=== PATIENT | male | born 1960 | race Caucasian/White ===

== ENCOUNTER 2022-08-06 09:28 | Inpatient (IN) | payer OTHER ==
[~2022-08-06] VITALS: Ht 180.3 cm; Wt 83.5 kg
[2022-08-06 10:34] LABS: BASOPHILS ABSOLUTE AUTO 0.08 K/mm3 (0.00-0.23); BASOPHILS PERCENT AUTO 1 % (0-2); EOSINOPHILS ABSOLUTE AUTO 0.13 K/mm3 (0.00-0.68); EOSINOPHILS PERCENT AUTO 1 % (0-6); Hematocrit 50.7 % (37.0-53.0); Hemoglobin 17.3 g/dL (13.5-17.5); IMMATURE GRAN ABSOLUTE AUTO 0.03 K/mm3 (0.00-0.10); IMMATURE GRAN PERCENT AUTO 0 % (0-1); LYMPHOCYTES ABSOLUTE AUTO 0.99 K/mm3 (0.84-5.20); LYMPHOCYTES PERCENT AUTO 9 % (21-46); MONOCYTES ABSOLUTE AUTO 1.27 K/mm3 (0.16-1.47); MONOCYTES PERCENT AUTO 11 % (4-13); Mean Corpuscular HGB 32.3 pg (26.0-34.0); Mean Corpuscular HGB Conc 34.1 g/dL (31.5-36.5); Mean Corpuscular Volume 95 fL (80-100); Mean Platelet Volume 9.3 fL (9.1-12.4); NEUTROPHILS ABSOLUTE AUTO 9.01 K/mm3 (1.96-9.15); NEUTROPHILS PERCENT AUTO 78 % (41-73); Platelet Count 404 K/mm3 (150-400); RDW Standard Deviation 48.6 fL (35.1-46.3); Red Blood Cell Count 5.36 M/mm3 (4.30-5.90); White Blood Cell Count 11.51 K/mm3 (4.00-11.30)
[2022-08-06] MEDS ORDERED: FURO20 PO (10:37)
[2022-08-06] MEDS ORDERED: IBUP200 PO (10:38)
[2022-08-06] MEDS ORDERED: GUAI200 PO (10:38)
[2022-08-06] MEDS ORDERED: ALBU90OI INH (10:38)
[2022-08-06] MEDS ORDERED: EPIPEN0.3 MG/0.3 IM (10:38)
[2022-08-06 10:53] LABS: Albumin, Blood 3.9 g/dL (3.4-5.0); Albumin/Globulin Ratio 0.9 (0.8-1.8); Bilirubin, Total 0.7 mg/dL (0.1-1.0); Bun/Creatinine Ratio 19.1 (12.0-20.0); Calcium, Blood 10.3 mg/dL (8.5-10.1); Creatinine, Blood 0.89 mg/dL (0.60-1.20); Globulin, Blood 4.4 g/dL (2.2-4.0); Magnesium, Blood 1.9 mg/dL (1.6-2.4); Potassium, Blood 3.1 mmol/L (3.5-5.5); Thyroid Stimulating Hormone 2.23 uIU/mL (0.360-4.800); Total Protein, Blood 8.3 g/dL (6.4-8.2)
--- NOTE | 2022-08-06 16:16 | NUR ---
Telephone report from ED; pt will be arriving to PCU 15 shortly I expect. Per report, the patient is alert and oriented x 4 but is refusing lasix IV, coreg PO, potassium PO, oximetry monitoring, oxygen nasal cannula delivery,and had previously refused the IV zosyn and IV cardizem but finally consented to the latter two.
[2022-08-06 16:35] VITALS: BP 191/107
--- NOTE | 2022-08-06 17:49 | NUR ---
Pt arrived to the unit at 1635. He wanted to stand and transfer from the stretcher to the bed in room PCU 15. Upon standing, he was dyspneic and heart rate 117, rhythm atrial fibrillation, and noted that his underwear was soaked with urine. He was very irritable, insisting on having pain medication and albuterol inhaler. Refused the Duoneb (although it was explained that it has albuterol in it) on account of it being nebulized instead of an inhaler. Refused xarelto because he said that he consulted with a editor managing newspaper in [place] and has not been on any anticoagulant. He said he will never take any anticoagulant, but could not enlighten me further on his rationale. Pt education was given that the risk of stroke is quite significant due to his atrial fibrillation, and that the anticoagulant would reduce this risk but his decision was unchanged. Blood pressure is quite elevated, but he refuses to take his oral medications. He is on a cardizem gtt at 5 cc/hour. He states that he only wants treatment and medications for the reasons which he presented to the ED: His jaw pain, and his difficulty breathing. He refuses to take any medications nor treatments which he has not personally discussed with the attending physician, he stated. He was given albuterol inhaler and oxycodone for pain which were ordered after I spoke with Dr. Peck on the phone.
--- NOTE | 2022-08-06 18:40 | NUR ---
Pt again refused administration of xarelto, carvedilol, and oral potassium. The pt was educated on his present vital signs (elevated blood pressure 177mmHG systolic), atrial fibrillation without anticoagulation, and hypokalemia. He states that his only medical issues are the jaw infection and difficulty breathing. States that the only reason that he agreed to admission to hospital was that he could possibly get the CT scan of his jaw in the morning after his anxiety which prevented the CT scan earlier today is resolved. He states that his pain is much relieved and that his breathing is also improved after the albuterol inhaler.
[2022-08-06 21:19] VITALS: BP 144/94
[2022-08-06 23:59] VITALS: BP 138/102
[2022-08-07 03:16] VITALS: BP 153/92
[2022-08-07 03:29] LABS: Base Excess Venous 12.7 mmol/L; Bicarbonate Venous 34.8 mmol/L (24.0-30.0); PCO2 Venous 46.2 mmHg (38-42)
[2022-08-07 04:00] LABS: Bun/Creatinine Ratio 16.1 (12.0-20.0); Calcium, Blood 8.8 mg/dL (8.5-10.1); Creatinine, Blood 0.69 mg/dL (0.60-1.20); Potassium, Blood 3.4 mmol/L (3.5-5.5)
[2022-08-07 05:05] LABS: BASOPHILS ABSOLUTE AUTO 0.09 K/mm3 (0.00-0.23); BASOPHILS PERCENT AUTO 1 % (0-2); EOSINOPHILS ABSOLUTE AUTO 0.31 K/mm3 (0.00-0.68); EOSINOPHILS PERCENT AUTO 4 % (0-6); Hemoglobin 15.8 g/dL (13.5-17.5); IMMATURE GRAN ABSOLUTE AUTO 0.01 K/mm3 (0.00-0.10); IMMATURE GRAN PERCENT AUTO 0 % (0-1); LYMPHOCYTES ABSOLUTE AUTO 1.19 K/mm3 (0.84-5.20); LYMPHOCYTES PERCENT AUTO 13 % (21-46); MONOCYTES ABSOLUTE AUTO 1.36 K/mm3 (0.16-1.47); MONOCYTES PERCENT AUTO 15 % (4-13); Mean Corpuscular HGB 33.3 pg (26.0-34.0); Mean Corpuscular HGB Conc 35.1 g/dL (31.5-36.5); Mean Corpuscular Volume 95 fL (80-100); Mean Platelet Volume 9.2 fL (9.1-12.4); NEUTROPHILS ABSOLUTE AUTO 5.92 K/mm3 (1.96-9.15); NEUTROPHILS PERCENT AUTO 67 % (41-73); Platelet Count 327 K/mm3 (150-400); RDW Coefficient Variation 13.7 % (11.7-14.2); RDW Standard Deviation 48.1 fL (35.1-46.3); Red Blood Cell Count 4.74 M/mm3 (4.30-5.90); White Blood Cell Count 8.88 K/mm3 (4.00-11.30)
--- NOTE | 2022-08-07 06:31 | NUR ---
Pt has been cooperative with the majority of care overnight. Pt seemed to be anxious at the start of the shift but relaxed as night went on. Pt has been able to get some rest. Pt remains on dilt gtt at 5mL/hr. HR 75-95 resting. Some complaints of SOB which resolves with inhaler. Left side of jaw continues to be swollen but Pt reports that swelling has improved since starting ABX. Pt does have concerns about getting outpatient home O2 set up. May benefit from director of casework involvement. Pt is able to make needs known, call light is within reach.
--- NOTE | 2022-08-07 07:53 | NUR ---
Pt is irritable this morning. He asked when breakfast is ready, and when I told him around 8 am he became angry and said that I wasn't answering the question directly. He is angry.
[2022-08-07 08:01] VITALS: BP 148/95
--- NOTE | 2022-08-07 08:16 | NUR ---
Dr. Peck is here to see the patient. Pt took all of his medications except for the carvedilol, and famotidine this morning.
[2022-08-07] MEDS ORDERED: POTCHL20ER PO (09:29)
[2022-08-07] MEDS ORDERED: DILT120 PO (09:29)
--- NOTE | 2022-08-07 11:09 | NUR ---
The pt was given his ordered diltiazem. Initially he said that he wanted the short acting instead of the extended release. I explained that the medication is taken once daily to give a 24 hour coverage, eliminating need for taking a capsule every 6 hours, including during night. He said, "So you aren't going to comply with my request and call the doctor to have it changed?" I explained that I would not, because the physician had ordered the medication specifically as a long acting extended release diltiazem. The pt stared at me a few minutes and then said that he would take it, but that he would have it changed with his PCP in [place] after discharge.
--- NOTE | 2022-08-07 11:24 | NUR ---
Home O2 evaluation done. [employer] echocardiogram tech was here to do the echocardiogram, but the pt refused it.
--- NOTE | 2022-08-07 11:25 | NUR ---
Ambulatory to the bathroom with minimal assistance with IV pole.
--- NOTE | 2022-08-07 11:43 | NUR ---
Pt was unreceptive and antagonistic and argumentative to all attempts to educate the patient regading current illness, medications, risk of stroke, benefits of anticoagulant, benefits of beta blockers. At each and every attempt to educate, assess, and provide care and treatment/evaluation the pt was argumentative, antagonistic, uncooperative, and verbally condescending in his treatment of nursing, respiratory, ancillary and physician staff. Very unfortunately he has declined the treatments and care which could improve his quality of life. Discharge instructions were reviewed with him by myself with charge entry Larisa also present. We are presently waiting for the oxygen delivery so that he can take a taxi back to the motel where he is staying.
--- NOTE | 2022-08-07 12:51 | NUR ---
Cardizem gtt turned off at this time. Waiting for oxygen tank delivery for pt to be discharged from hospital.
[2022-08-07 15:21] VITALS: BP 109/70
--- NOTE | 2022-08-07 15:32 | NUR ---
Pt awakened from nap for vital signs. Oxygen delivery will be in 30 minutes.
--- NOTE | 2022-08-07 16:11 | NUR ---
Oxygen delivery done by [facility]. Verified prescriptions received by Jelly at [facility]
== END 2022-08-07 16:30 | disposition home or self-care (01) | DRG 291 ==
LOC: ER 09:28 → PCU 15:20
PROVIDERS: Emergency Medicine; ADMIT Internal Medicine
DX: I50.9 Heart failure, unspecified (principal); J96.01 Acute respiratory failure with hypoxia; I48.20 Chronic atrial fibrillation, unspecified; J44.0 Chronic obstructive pulmonary disease with (acute) lower respiratory infection; J96.12 Chronic respiratory failure with hypercapnia; E87.3 Alkalosis; Z66 Do not resuscitate; K04.7 Periapical abscess without sinus; J20.9 Acute bronchitis, unspecified; E87.6 Hypokalemia; G89.4 Chronic pain syndrome; R73.09 Other abnormal glucose; Z98.890 Other specified postprocedural states; Z87.891 Personal history of nicotine dependence; Z88.8 Allergy status to other drugs, medicaments and biological substances; Z79.899 Other long term (current) drug therapy; Z79.01 Long term (current) use of anticoagulants; Z79.51 Long term (current) use of inhaled steroids; Z99.81 Dependence on supplemental oxygen
CPT/HCPCS: 36415; 71045; 80048; 80053; 82803; 83735; 83880; 84145; 84439; 84443; 84484; 85025; 93005; 93010; 94640; 94664; 94760; 94761; 94762; 96365; 96366; 96368; 96376; 99285-25; A9270; J0696; J1940; J2543

== ENCOUNTER 2022-08-15 09:51 | Emergency (ER) | payer OTHER ==
[~2022-08-15] VITALS: Ht 177.8 cm; Wt 83.9 kg
[~2022-08-15 09:51] MED LIST: ALBU90OI INH; DILT120 PO; EPIPEN0.3 MG/0.3 IM; FURO20 PO; GUAI200 PO; IBUP200 PO; POTCHL20ER PO
[2022-08-15 10:43] LABS: BASOPHILS ABSOLUTE AUTO 0.12 K/mm3 (0.00-0.23); BASOPHILS PERCENT AUTO 2 % (0-2); EOSINOPHILS ABSOLUTE AUTO 0.18 K/mm3 (0.00-0.68); EOSINOPHILS PERCENT AUTO 2 % (0-6); Hematocrit 48.3 % (37.0-53.0); Hemoglobin 16.5 g/dL (13.5-17.5); IMMATURE GRAN ABSOLUTE AUTO 0.02 K/mm3 (0.00-0.10); IMMATURE GRAN PERCENT AUTO 0 % (0-1); LYMPHOCYTES ABSOLUTE AUTO 1.45 K/mm3 (0.84-5.20); LYMPHOCYTES PERCENT AUTO 20 % (21-46); MONOCYTES ABSOLUTE AUTO 0.84 K/mm3 (0.16-1.47); MONOCYTES PERCENT AUTO 11 % (4-13); Mean Corpuscular HGB 33.3 pg (26.0-34.0); Mean Corpuscular HGB Conc 34.2 g/dL (31.5-36.5); Mean Corpuscular Volume 97 fL (80-100); NEUTROPHILS ABSOLUTE AUTO 4.77 K/mm3 (1.96-9.15); NEUTROPHILS PERCENT AUTO 65 % (41-73); Platelet Count 285 K/mm3 (150-400); RDW Coefficient Variation 13.6 % (11.7-14.2); RDW Standard Deviation 49.1 fL (35.1-46.3); Red Blood Cell Count 4.96 M/mm3 (4.30-5.90); White Blood Cell Count 7.38 K/mm3 (4.00-11.30)
[2022-08-15 11:50] LABS: Potassium, Blood 4.5 mmol/L (3.5-5.5)
[2022-08-15 11:51] LABS: Albumin, Blood 3.3 g/dL (3.4-5.0); Albumin/Globulin Ratio 0.8 (0.8-1.8); Calcium, Blood 9.6 mg/dL (8.5-10.1); Creatinine, Blood 0.8 mg/dL (0.60-1.20); Globulin, Blood 3.9 g/dL (2.2-4.0); Total Protein, Blood 7.2 g/dL (6.4-8.2)
[2022-08-15 11:52] LABS: Bilirubin, Total 0.4 mg/dL (0.1-1.0)
[2022-08-15 12:46] VITALS: BP 150/70
[2022-08-15] MEDS ORDERED: ALBU90OI INH (14:54)
[2022-08-15] MEDS ORDERED: GUAI600T33 PO (14:54)
[2022-08-15] MEDS ORDERED: AMOCLA875 PO (14:54)
== END 2022-08-15 15:30 | disposition home or self-care (01) ==
LOC: ER 09:51
PROVIDERS: Emergency Medicine
DX: I50.9 Heart failure, unspecified (principal); I48.20 Chronic atrial fibrillation, unspecified; L03.90 Cellulitis, unspecified; J44.9 Chronic obstructive pulmonary disease, unspecified; Z59.9 Problem related to housing and economic circumstances, unspecified; Z79.01 Long term (current) use of anticoagulants; Z87.891 Personal history of nicotine dependence
CPT/HCPCS: 71045; 80053; 83880; 84484; 85025; 93005; 93010; 94640; 94664; A9270